=== PATIENT | female | born 1995 | race Caucasian/White ===

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

== ENCOUNTER → 2017-07-07 | Outpatient (CLI) | payer OTHER ==
[~2017-07-07] MED LIST changes: +CEFTIN 250250 MG/TAB PO
== END ==
LOC: COL.RAD 13:13
DX: S73.192A Other sprain of left hip, initial encounter (principal); M89.9 Disorder of bone, unspecified
CPT/HCPCS: A9585; Q9967